=== PATIENT | male | born 1965 | race Caucasian/White ===

== ENCOUNTER 2017-03-14 20:00 | Emergency (ER) | payer OTHER ==
[~2017-03-14] VITALS: Ht 170.2 cm; Wt 74.8 kg
[2017-03-14 20:04] VITALS: BP_SYST 113
--- NOTE | 2017-03-14 20:09 | NUR ---
Patient to ER bed 3 to gown for evaluation. Side rails up. Report given to Ranjit AVILEZ.
--- NOTE | 2017-03-14 20:11 | NUR ---
Arrived to ED a/o x 4 with c/o sharp RLQ ABD pain radiating to the back 8 since this afternoon. Patient states feeling like he is being stabbed to the RLQ. Pain upon light palpation to the RLQ. Reports nausea without vomiting. Denies fever. Denies urinary problems. at bedside. Will continue to monitor.
[2017-03-14 20:30] LABS: BILIRUBIN,URINE NEGATIVE (NEGATIVE); BLOOD, URINE NEGATIVE (NEGATIVE); CLARITY/URINE SL HAZY (CLEAR); COLOR,URINE YELLOW (YELLOW); GLUCOSE,URINE NEGATIVE (NEGATIVE); KETONES,URINE NEGATIVE (NEGATIVE); LEUKOCYTE ESTERASE ,URINE NEGATIVE (NEGATIVE); NITRITE, URINE NEGATIVE (NEGATIVE); PROTEIN URINE NEGATIVE (NEGATIVE); UROBILINOGEN,URINE 0.2 (0.2-1.0)
[2017-03-14 21:08] LABS: BASOPHILS # (AUTO) 0.1 K/uL (0.0-0.2); BASOPHILS % (AUTO) 1.4 % (0.0-2.0); EOSINOPHILS # (AUTO) 0.3 K/uL (0.0-0.4); EOSINOPHILS % (AUTO) 3.3 % (0.0-4.0); HEMATOCRIT 41.7 % (36-54); HEMOGLOBIN 14.3 g/dL (14.0-18.0); LYMPHOCYTES # (AUTO) 2.6 K/uL (1.0-5.5); LYMPHOCYTES % (AUTO) 29.9 % (20.5-51.5); MEAN CORPUSCULAR HEMOGLOBIN 32 pg (27-31); MEAN CORPUSCULAR HGB CONC 34 % (32-36); MEAN CORPUSCULAR VOLUME 94 fL (79.0-98.0); MONOCYTES # (AUTO) 0.4 K/uL (0.0-1.0); MONOCYTES % (AUTO) 4.9 % (1.7-9.3); NEUTROPHILS # (AUTO) 5.4 K/uL (1.8-7.7); NEUTROPHILS % (AUTO) 60.5 % (40.0-70.0); PLATELET COUNT (AUTO) 266 K/uL (130-430); RED BLOOD CELL COUNT(AUTO) 4.44 MIL/uL (4.2-6.2); RED CELL DISTRIBUTION WIDTH 12.7 % (9.0-15.0); WHITE BLOOD COUNT (AUTO) 8.8 K/uL (4.8-10.8)
[2017-03-14] MEDS ORDERED: MORPHINE 4 MG/ML INJ. SYRINGE IVP ONE (21:15)
[2017-03-14] MEDS ORDERED: NACL 0.9% 1,000 ML IV ONE (21:15)
[2017-03-14] MEDS ORDERED: ONDANSETRON HCL 4 MG/2 ML VIAL IVP ONE (21:15)
[2017-03-14 21:18] LABS: ANION GAP 7 (5-15); CALCIUM 8.7 mg/dL (8.4-11.0); CHLORIDE 107 mmol/L (98-107); CREATININE 1.01 mg/dL (0.55-1.30); GLUCOSE 114 mg/dL (70-99); POTASSIUM 3.9 mmol/L (3.5-5.1); SODIUM SERUM 143 mmol/L (136-145); UREA NITROGEN, BLOOD 17 mg/dL (8-21)
--- NOTE | 2017-03-14 21:20 | NUR ---
Laboratory at bedside.
[2017-03-14 21:26] LABS: ALANINE AMINOTRANSFERASE 27 U/L (12-78); ALBUMIN 3.5 g/dL (3.4-4.8); ASPARTATE AMINOTRANSFERASE 21 U/L (10-37); LIPASE 172 U/L (73-393); TOTAL BILIRUBIN 0.2 mg/dL (0.0-1.0); TOTAL PROTEIN, SERUM 6.7 g/dL (6.4-8.3)
[2017-03-14 21:30] LABS: GFR AFRICAN AMERICAN 101 mL/min (>90)
--- NOTE | 2017-03-14 22:00 | NUR ---
Patient resting quietly. No acute distress noted. Vital signs within normal range.
--- NOTE | 2017-03-14 23:11 | NUR ---
Patient transported off unit for CT via wheelchair by radiology staff.
[2017-03-14] MEDS ORDERED: IOHEXOL 100 ML IV ONE (23:16)
--- NOTE | 2017-03-14 23:25 | NUR ---
Patient returned to unit from CT via wheelchair by radiology staff.
--- NOTE | 2017-03-14 23:58 | NUR ---
ED MD Turk at bedside discussing CT results with patient.
[2017-03-15] MEDS ORDERED: LIDOCAINE VISCOUS 2%, 15 ML UDC MM ONE (00:15)
[2017-03-15] MEDS ORDERED: MAG-AL HYDROX/SIMETH 30 ML UDC PO ONE (00:15)
[2017-03-15] MEDS ORDERED: BELLADONNA ALKALOIDS/PHENOBARB 5 ML UDC PO ONE (00:15)
--- NOTE | 2017-03-15 00:30 | NUR ---
ED MD Turk at bedside with patient for reassessment
[2017-03-15 00:43] VITALS: BP_SYST 128
--- NOTE | 2017-03-15 00:43 | NUR ---
Patient given written and verbal discharge instructions and verbalizes understanding. ER MD discussed with patient the results and treatment provided. Patient in stable condition. ID arm band removed. IV catheter removed intact and dressing applied, no active bleeding. Rx of simethicone amd omeprazole given. Patient educated on pain management and to follow up with PMD. Pain Scale 2/10.Opportunity for questions provided and answered.
== END 2017-03-15 00:43 | disposition home or self-care (01) ==
LOC: SED 20:00
DX: R10.13 Epigastric pain (principal); R10.31 Right lower quadrant pain; R11.0 Nausea
CPT/HCPCS: 36415; 74177; 80053; 81003; 83605; 83690; 84484; 85025; 93005; 96361; 96374; 96375; 99285; J2001; J2270; J2405; J7030; Q9967

== ENCOUNTER 2019-10-22 07:24 | Emergency (ER) | payer SELFPAY ==
[~2019-10-22] VITALS: Ht 170.2 cm; Wt 83.9 kg
[2019-10-22 07:24] VITALS: BP_SYST 119
--- NOTE | 2019-10-22 07:24 | NUR ---
Patient to ER bed 7 to gown for evaluation. Side rails up. Report given to RAGHAV Dewitt.
--- NOTE | 2019-10-22 07:30 | NUR ---
pt came to ER for sore neck x3 days. Pt AO4 ambulatory, no s/s of distress at this time
--- NOTE | 2019-10-22 07:41 | NUR ---
DR BETTS AT BEDSIDE FOR EVALUATION
[2019-10-22 08:18] VITALS: BP_SYST 119
--- NOTE | 2019-10-22 08:19 | NUR ---
Patient given written and verbal discharge instructions and verbalizes understanding. ER MD discussed with patient the results and treatment provided. Patient in stable condition. ID arm band removed. Rx of NORCO, NAPROXEN given. Patient educated on pain management and to follow up with PMD. Pain Scale 0/10. Opportunity for questions provided and answered. Medication side effect fact sheet provided.
== END 2019-10-22 08:19 | disposition home or self-care (01) ==
LOC: SED 07:24
DX: M43.6 Torticollis (principal)
CPT/HCPCS: 99283

== ENCOUNTER 2022-04-19 05:54 | Emergency (ER) | payer BC, OTHER ==
[~2022-04-19] VITALS: Ht 177.8 cm; Wt 94.3 kg
[2022-04-19 06:03] VITALS: BP_SYST 149
--- NOTE | 2022-04-19 06:10 | NUR ---
HERE FOR RHODES X2 DAYS WITH NAUSEA AND LIGHTHEADED. PATIENT DENIES TAKING ANY PAIN MEDS AT [facility], HE STATED THAT HE IS ON TB MEDS, PER PT HE IS NEGATIVE FOR TB ON RESULT CXR.
--- NOTE | 2022-04-19 06:15 | NUR ---
Note joanna in ED - 04/19/22 at 0620 by PEREZPR [facility] up. Report given to Leana AVILEZ.
--- NOTE | 2022-04-19 06:16 | NUR ---
PATIENT SEEN AND EXAMINE BY ER MD AT THIS TIME
--- NOTE | 2022-04-19 06:19 | NUR ---
PT ASSITED TO BED 8, REPORT GIVEN TO CHARLINE AVILEZ
[2022-04-19] MEDS ORDERED: METOCLOPRAMIDE HCL 10 MG TABLET PO ONE (06:30)
[2022-04-19] MEDS ORDERED: KETOROLAC TROMETHAMINE 30 MG VIAL IM ONE (06:30)
[2022-04-19] MEDS ORDERED: DIPHENHYDRAMINE HCL 25 MG CAPSULE PO ONE (06:30)
--- NOTE | 2022-04-19 07:30 | NUR ---
Received pt.from Leana AVILEZ. Pt c/o Headache "a tightening feeling around my whole head" Pt further describes generalized body aches. Reassessed pain scale after Toradol given at 0600 Pain scale 5/10 at this time. Pt states 60 days on new medication: Isoniazid for [place] of TB. Pt states false positive TB chest Xray to confirm. Pt is aaox4, skin intact, resting in lowered bed rails up. Provided blanket and pt is calm.
[2022-04-19 09:18] VITALS: BP_SYST 149
--- NOTE | 2022-04-19 09:20 | NUR ---
Patient given written and verbal discharge instructions and verbalizes understanding. ER MD discussed with patient the results and treatment provided. Patient in stable condition. ID arm band removed. IV catheter removed intact and dressing applied, no active bleeding. Patient educated on migraine headaches and encouraged to follow up with PCP within a week. Opportunity for questions provided and answered. Medication side effect fact sheet provided.
== END 2022-04-19 09:20 | disposition home or self-care (01) ==
LOC: SED 05:54
DX: G44.84 Primary exertional headache (principal); R42 Dizziness and giddiness; M54.2 Cervicalgia; R11.0 Nausea; Z79.899 Other long term (current) drug therapy
CPT/HCPCS: 96372; 99283; J1885; J8597; Q0163

== ENCOUNTER 2024-01-15 00:09 | Emergency (ER) | payer BC ==
[~2024-01-15] VITALS: Ht 175.3 cm; Wt 90.7 kg
[2024-01-15 00:18] VITALS: BP_SYST 142; PULSE 60; RESP 16; TEMP 97.4; O2SAT 96
[2024-01-15] MEDS: KETOROLAC TROMETHAMINE 30 MG VIAL IVP ONE (02:17)
[2024-01-15] MEDS: NACL 0.9% 1,000 ML IV ONE (02:17)
[2024-01-15] MEDS: METOCLOPRAMIDE HCL 10 MG/2 ML VIAL IVP ONE (02:17)
[2024-01-15] MEDS: ACETAMINOPHEN 500 MG TABLET PO ONE (02:18)
[2024-01-15 02:34] LABS: BASOPHILS % (AUTO) 0.6 % (0.0-2.0); EOSINOPHILS # (AUTO) 0.1 K/uL (0.0-0.4); EOSINOPHILS % (AUTO) 1.8 % (0.0-4.0); HEMATOCRIT 44.3 % (36-54); HEMOGLOBIN 15.1 g/dL (14.0-18.0); LYMPHOCYTES # (AUTO) 2.2 K/uL (1.0-5.5); LYMPHOCYTES % (AUTO) 31.5 % (20.5-51.5); MEAN CORPUSCULAR HEMOGLOBIN 32 pg (27-31); MEAN CORPUSCULAR HGB CONC 34 % (32-36); MEAN CORPUSCULAR VOLUME 93 fL (79.0-98.0); MONOCYTES # (AUTO) 0.6 K/uL (0.0-1.0); NEUTROPHILS # (AUTO) 3.9 K/uL (1.8-7.7); NEUTROPHILS % (AUTO) 57.1 % (40.0-70.0); PLATELET COUNT (AUTO) 232 K/uL (130-430); RED BLOOD CELL COUNT(AUTO) 4.77 MIL/uL (4.2-6.2); RED CELL DISTRIBUTION WIDTH 13.8 % (9.0-15.0); WHITE BLOOD COUNT (AUTO) 6.8 K/uL (4.8-10.8)
[2024-01-15 02:50] LABS: CALCIUM 8.4 mg/dL (8.4-11.0); CREATININE 0.96 mg/dL (0.55-1.30); POTASSIUM 3.7 mmol/L (3.5-5.1)
[2024-01-15 04:45] VITALS: BP_SYST 136; PULSE 63; RESP 16; TEMP 97.3; O2SAT 98
== END 2024-01-15 04:45 | disposition home or self-care (01) ==
LOC: SED 00:09
DX: R51.9 Headache, unspecified (principal)
CPT/HCPCS: 99284; 96374; 96361; 96375; 80048; 85025; 36415; J1885; J2765